=== PATIENT | male | born 1950 | race African-American/Black ===

== ENCOUNTER 2016-12-12 10:28 | Emergency (ER) | payer OTHER, MEDICARE ==
--- NOTE | ~2016-12-12 | CR173 ---
[facility] A Service of [facility] RADIOLOGY TEXT RESULTS PATIENT: MARY JO GUEVARA LOCATION: [facility] : 52 UNIT #: [id number] AGE: [address]: Buffy Duncan SEX: M ORDER DR: [id number] [address] [address] [id number] E MR#: [id number] Acc #: [id number] NAME: MARY JO GUEVARA : 1950 SEX: M STUDY DATE/TIME: 12/12/2016 10:08 UNIT: [facility] ROOM: STUDY DESCRIPTION: CR Knee 3 Views Rt Attending Physician: Buffy Duncan P.A.-C. Ordering Physician: Buffy Duncan P.A.-C. MEDICAL IMAGING REPORT This report is preliminary unless electronic signature is present EXAM Right knee 12/12/2016 HISTORY 66-year-old male with right knee pain after hitting knee on metal dumpster today. COMPARISON Knee x-rays 08/12/2016 FINDINGS 3 views of the right knee demonstrate no acute fracture or dislocation. There is a moderate knee effusion. Mild degenerative change at the patellofemoral joint. Mild medial and lateral compartment joint space narrowing. Mild anterior soft tissue swelling. IMPRESSION 1. Mild anterior soft tissue swelling with a moderate knee effusion. No evidence of acute fracture or dislocation. 2. Mild tricompartment arthrosis. Dictated by... Jarrett Saldana M.D. THIS IS AN ELECTRONICALLY VERIFIED REPORT Jarrett Saldana M.D. at 12/12/2016 2:13 PM [place] TD: 12/12/2016 12:10 JOB #: [id number] [facility] A Service [facility] RADIOLOGY TEXT RESULTS PATIENT: MARY JO GUEVARA LOCATION: [facility] : 52 UNIT #: [id number] AGE: [address]: Buffy Duncan SEX: M ORDER DR: MEDICAL IMAGING REPORT Page 1 of 1 COPY
== END 2016-12-12 11:28 | disposition home or self-care (01) ==
LOC: CED 10:28
DX: M25.461 Effusion, right knee (principal); F17.210 Nicotine dependence, cigarettes, uncomplicated
CPT/HCPCS: 29505; 73562; 99283